=== PATIENT | female | born 1950 | race Caucasian/White ===

== ENCOUNTER 2022-01-03 15:56 | Emergency (ER) | payer MEDICARE ==
[~2022-01-03] VITALS: Ht 162.6 cm; Wt 79.1 kg
[2022-01-03 18:43] LABS: BASOPHILS % (AUTO) 0.5 % (0-1); EOSINOPHILS # (AUTO) 0.1 X10'3 (0-0.9); EOSINOPHILS % (AUTO) 1.2 % (0-6); HEMATOCRIT 35.5 % (35.0-45.0); HEMOGLOBIN 12.5 g/dl (12.0-16.0); LYMPHOCYTES # (AUTO) 1.2 X10'3 (1.1-4.8); LYMPHOCYTES % (AUTO) 18.8 % (21-51); MEAN CORPUSCULAR HGB CONC 35.1 g/dL (33.0-36.5); MEAN CORPUSCULAR VOLUME 88.1 FL (78-98); MEAN PLATELET VOLUME 7.7 FL (7.4-10.4); MONOCYTES # (AUTO) 0.5 X10'3 (0-0.9); MONOCYTES % (AUTO) 7.6 % (2-12); NEUTROPHILS # (AUTO) 4.5 X10'3 (1.8-7.7); NEUTROPHILS % (AUTO) 71.9 % (42-75); PLATELET COUNT 159 X10'3 (140-440); RED BLOOD COUNT 4.03 X10'6 (4.20-5.60); RED CELL DISTRIBUTION WIDTH 14.1 % (11.5-14.5); WHITE BLOOD COUNT 6.2 X10'3 (4.5-11.0)
[2022-01-03 18:56] LABS: ALANINE AMINOTRANSFERASE 16 U/L (12-78); ALBUMIN 4.1 G/DL (3.4-5.0); ALBUMIN/GLOBULIN RATIO 1.1 (1.1-1.5); ALKALINE PHOSPHATASE 112 IU/L (46-116); ANION GAP 10 (8-16); ASPARTATE AMINO TRANSFERASE 15 U/L (10-37); BILIRUBIN,TOTAL 0.4 MG/DL (0.1-1.0); BLOOD UREA NITROGEN 24 MG/DL (7-18); BUN/CREATININE RATIO 23.3 (6.6-38.0); CALCIUM 9.4 MG/DL (8.5-10.1); CHLORIDE 104 MMOL/L (99-107); CREATININE 1.03 MG/DL (0.40-0.90); GLUCOSE 95 MG/DL (70-104); LIPASE 54 U/L (73-393); POTASSIUM 3.9 MMOL/L (3.5-5.1); SODIUM 141 MMOL/L (135-145); TOTAL PROTEIN 7.8 G/DL (6.4-8.2); eGFR 53 ML/MIN
[2022-01-03] MEDS ORDERED: iohexol 350MG/ML 100ml bottle IV ONE (18:58)
[2022-01-03] MEDS ORDERED: ipratropium 0.5 MG/2.5ML nebule IH ONE (19:15)
[2022-01-03] MEDS ORDERED: predniSONE 20 mg tablet PO ONE (19:15)
[2022-01-03] MEDS ORDERED: albuterol 2.5 MG/3 ML nebule CONTNEB PRN (19:15)
--- NOTE | 2022-01-03 20:10 | NUR ---
PT RECIEVING BREATHING TX FROM RESPIRATORY. PT SOB AFTER RETURNING FROM THE BATHROOM AND LUNGS NOW WHEEZING.
[2022-01-03 20:19] LABS: APTT 25 SECONDS (22-32)
[2022-01-03 20:39] LABS: URINE HCG NEGATIVE (NEG)
[2022-01-03 20:42] LABS: CLARITY,URINE CLEAR (Clear); COLOR,URINE STRAW (Yellow); GLUCOSE, URINE NEGATIVE (Neg); KETONES,URINE NEGATIVE (Neg); LEUKOCYTE ESTERASE ,URINE NEGATIVE (Neg); NITRITES, URINE NEGATIVE (Neg); OCCULT BLOOD,URINE NEGATIVE (Neg); PROTEIN,URINE NEGATIVE (Neg); UROBILINOGEN,URINE 0.2 E.U/dL (0.2-1.0)
[2022-01-03 20:44] LABS: UA COLLECTION TYPE CLN CATCH MIDSTREAM
[2022-01-03] MEDS ORDERED: PRED20TA PO (22:00)
[2022-01-03 22:21] VITALS: BP 160/77
== END 2022-01-03 22:23 | disposition home or self-care (01) ==
LOC: ER 15:57
DX: J44.1 Chronic obstructive pulmonary disease with (acute) exacerbation (principal); M79.10 Myalgia, unspecified site; I10 Essential (primary) hypertension; J44.9 Chronic obstructive pulmonary disease, unspecified; F32.A Depression, unspecified; Z90.49 Acquired absence of other specified parts of digestive tract
CPT/HCPCS: 36415; 71275; 80053; 81003; 81025; 83690; 83880; 84484; 85025; 85610; 85730; 93005; 94640; 94644; 99285; J3490; J7512; Q9967; A7015